=== PATIENT | male | born 1970 | race Two or more races ===

== ENCOUNTER 2020-02-17 12:01 | Inpatient (IN) | payer BC ==
[2020-02-17 12:30] VITALS: BMI 31.0
--- NOTE | 2020-02-17 12:51 | PDOC ---
History of Present Illness - General Chief Complaint: Shortness of Breath Stated Complaint: SHORTNESS OF BREATH Time Seen by Provider: 02/17/20 12:50 - History of Present Illness Initial Comments: 02/17/20 13:20 Mr. Evans is a 49 with PMH of HTN, psoriasis on humira presented to the ED for persistent SOB. He traveled to [facility] for 20 days. Initially, when he arrived, he had 2 days of fever, subsided quickly, muscle ache, . Then his family members who are doctor gave him 5 days of medication; he felt a bit better. Then february 11, he came back home, and kept having persistent SOB. His SOB is getting worsening; that's why he is here. He denies fever, N/V/D, chest pain, abdominal pain. He denies leg swelling, hx of blood clot. Patient had covid testing in [facility], and it was negative. He recently had covid testing, and it's still pending. Patient thinks this could be due to COVID. PMHX: as in HPI PSHX: none Meds: none Allergies: none Tob:none Etoh: occationally. Rec drugs: none PCP: have one, but he left practice. He needs to change to new PCP. Small Piece Cutter: yue DAVIS GENERAL/CONSTITUTIONAL: No fever or chills. No weakness. HEAD, EYES, EARS, NOSE AND THROAT: No change in vision. No ear pain or discharge. No sore throat. CARDIOVASCULAR: No chest pain , + shortness of breath RESPIRATORY: No cough, wheezing, or hemoptysis. GASTROINTESTINAL: No nausea, vomiting, diarrhea or constipation. GENITOURINARY: No dysuria, frequency, or change in urination. MUSCULOSKELETAL: No joint or muscle swelling or pain. No neck or back pain. SKIN: No rash NEUROLOGIC: No headache, vertigo, loss of consciousness, or change in strength/sensation. ENDOCRINE: No increased thirst. No abnormal weight change HEMATOLOGIC/LYMPHATIC: No anemia, easy bleeding, or history of blood clots. ALLERGIC/IMMUNOLOGIC: No hives or skin allergy. PE GENERAL: Awake, alert, and fully oriented, in no acute distress, in 2 L NC oxygen. HEAD: No signs of trauma, normocephalic, atraumatic EYES: PERRLA, EOMI, sclera anicteric, conjunctiva clear ENT: Auricles normal inspection, hearing grossly normal, nares patent, oropharynx clear without exudates. Moist mucosa NECK: Normal ROM, supple, no lymphadenopathy, JVD, or masses LUNGS: No distress, speaks full sentences, clear to auscultation bilaterally; however, crackles on the right bases. no intercostal retraction. HEART: Regular rate and rhythm, normal S1 and S2, no murmurs, rubs or gallops, peripheral pulses normal and equal bilaterally. ABDOMEN: Soft, nontender, normoactive bowel sounds. No guarding, no rebound. No masses EXTREMITIES : Normal inspection, Normal range of motion, no edema. No clubbing or cyanosis. NEUROLOGICAL: Cranial nerves II through XII grossly intact. Normal speech, normal gait, no focal sensorimotor deficits SKIN: Warm, Dry, normal turgor, no rashes or lesions noted Past History - Medical History Allergies/Adverse Reactions: Allergies Allergy/AdvReac Type Severity Reaction Status Date / Time No Known Allergies Allergy Verified 02/17/20 12:30 Home Medications: Ambulatory Orders Amlodipine Besylate [Norvasc -] 10 mg PO DAILY 02/17/20 Lisinopril/Hydrochlorothiazide [Lisinopril-Hctz 20-25 mg Tab] 1 each PO DAILY 02/17/20 Red Yeast Rice 600 mg PO DAILY 02/17/20 HTN: Yes - Psycho-Social/Smoking History Smoking Status: No Smoking History: Never smoked Number of Cigarettes Smoked Daily: 0 Information on smoking cessation initiated: No - Substance Abuse Hx (Audit-C & DAST Scrn) How often the patient has a drink containing alcohol: Monthly or less Score: In Men: 4 or > Positive; In Women: 3 or > Positive: 1 Screen Result (Pos requires Nsg. Audit-10AR): Negative *Physical Exam - Vital Signs Last Vital Signs Temp Pulse Resp BP Pulse Ox 98.9 F 116 H 20 145/104 H 92 L 02/17/20 12:22 02/17/20 12:22 02/17/20 12:22 02/17/20 12:22 02/17/20 12:22 ED Treatment Course - LABORATORY CBC & Chemistry Diagram: 02/17/20 12:45 02/17/20 13:21 Medical Decision Making - Medical Decision Making 02/17/20 13:31 49 M with hx of HTN, psoriasis presented to the ED for 5 days of persistent SOB. ddx: pneumonia, COVID, CHF, PE. Plan: Lab: CBC, CMP , BNP Imaging: chest xray which reveals increased central marking with some atelectasis at the base, need CT scan. Personal reading: showed no infiltrates. CT chest noncontrast. 02/17/20 14:01 EKG: sinus rhtym, vent rate 100, no ST changes suggesting Ischemic, no previous EKG to compare to . 02/17/20 14:01 repeated VItal sign: HTN 135/86, HR 106, Spo2 91% on RA, 98.2 tempt. Will keep him on oxygen 2L NC. CT chest non-contrast revealed ground glass sign consistently with COVID, given its nature, and his recent travel history, will plan to do CTA chest to rule out PE . Lab came back, showed elevated transaminase level, no elevated WBC. BUN/Cr is normal. proceed to do CTA to rule out PE. 02/17/20 14:52 Decision to admit was made, waiting to [facility] from formal reading of chest CT. 02/17/20 17:28 Patient will be admitted under dr. somers for hypoxia and covid. Lab ordered for CRP, LDA, Feritin , ddimer. per IM attending. Discharge - Discharge Information Problems reviewed: Yes Clinical Impression/Diagnosis: Hypoxia, COVID-19 Condition: Good - Admission Yes - Follow up/Referral Referrals: Joseph Gautam MD [Primary Care Provider] - - Patient Discharge Instructions - Post Discharge Activity
[2020-02-17] MEDS ORDERED: SODIUM CHLORIDE 0.9% 500 ML INFUS.BAG IV ONE (13:18)
[2020-02-17 14:19] LABS: BASO % 0.3 % (0-2.0); EOS % 0.6 % (0-4.5); HEMATOCRIT 44.9 % (35.4-49); HEMOGLOBIN 14.9 GM/dL (11.7-16.9); LYMPH % 31.4 % (8-40); MCH 28.1 pg (25.7-33.7); MCHC 33.2 g/dl (32.0-35.9); MEAN CELL VOLUME 84.8 fl (80-96); MEAN PLT VOLUME 9.7 fl (7.5-11.1); MONO % 10.5 % (3.8-10.2); NEUT % 57.2 % (42.8-82.8); PLATELET COUNT 320 K/MM3 (134-434); RBC 5.29 M/mm3 (4.00-5.60); RDW 13.5 % (11.9-15.9); WHITE BLOOD COUNT 7.1 K/mm3 (4.0-10.0)
[2020-02-17 14:28] LABS: ALBUMIN 3.4 g/dl (3.4-5.0); BILIRUBIN,TOTAL 0.9 mg/dL (0.2-1); BLOOD UREA NITROGEN 12.3 mg/dL (7-18); CALCIUM 9.5 mg/dL (8.5-10.1); POTASSIUM 3.8 mmol/L (3.5-5.1); TOT PROT 7.7 g/dl (6.4-8.2)
--- NOTE | 2020-02-17 15:57 | PDOC ---
Attending Attestation - Resident Resident Name: Mickey Lutz - ED Attending Attestation I have performed the following: I have examined & evaluated the patient, The case was reviewed & discussed with the resident, I agree w/resident's findings & plan, Exceptions are as noted - HPI HPI: 02/17/20 16:09 Agree with resident HPI - Physicial Exam PE: 02/17/20 16:10 GENERAL: Awake, alert, and fully oriented, in no acute distress EYES: PERRLA, EOMI, sclera anicteric, conjunctiva clear ENT: Nares patent, oropharynx clear without exudates. Moist mucosa NECK: Normal ROM, supple, no lymphadenopathy, JVD, or masses LUNGS: Fair air movement, diffuse b/l crackles R>L, no resp distress HEART: Regular rate and rhythm, normal S1 and S2, no murmurs, rubs or gallops ABDOMEN: Soft, nontender, normoactive bowel sounds. No guarding, no rebound. No masses EXTREMITIES: Normal range of motion, no edema. No clubbing or cyanosis. No cords, erythema, or tenderness NEUROLOGICAL: Normal speech, cranial nerves intact, equal strength and sensation b/l SKIN: Warm, Dry, normal turgor, no rashes or lesions noted. - Medical Decision Making 02/17/20 16:13 49yo M, immunecomprimised (on monoclonal ab) returns from (high COVID prevalence) with SOB, myalgias, fevers Pt hypoxic to 90% on RA at rest. Improves with NC to 96% Concern for COVID PNA vs bacterial PNA vs viral syndrome. PE also a consideration given recent travel Labs, CT, consider CTA, empiric abx antibiotics Anticipate admission Discharge - Discharge Information Problems reviewed: Yes Clinical Impression/Diagnosis: Hypoxia, COVID-19 Condition: Stable Disposition: HOME - Follow up/Referral - Patient Discharge Instructions - Post Discharge Activity
[2020-02-17] MEDS ORDERED: DEXAMETHASONE SOD PHOSPHATE 10 MG/1 ML VIAL IM ONE (16:17)
[2020-02-17] MEDS ORDERED: DEXAMETHASONE SOD PHOSPHATE 10 MG/1 ML VIAL ONE (17:36)
[2020-02-17] MEDS ORDERED: ALBUTEROL SO4 HFA INHALER IH PRN (18:29)
--- NOTE | 2020-02-17 18:33 | HP ---
CHIEF COMPLAINT: shortness of breath PCP: Dr. Joseph Gautam HISTORY OF PRESENT ILLNESS: Patient is a 49 year old male with past medical history of HTN, HLD and Psoriasis (on Humira twice monthly with Dr. Ochoa), presented to the ED due to cough and shortness of breath for about 3 weeks. Patient reported he went to [place] in on January 23 to fix his father's house. Three days after, he started feeling weak, with fevers, muscle aches and nonproductive cough. He went to a physician while there, and he reportedly was prescribed a medication that he took for 5 days. He reported he was also tested for COVID, but is unsure of the results. No encounter with any other person who is ill. Patient continued to have intermittent symptoms of cough, fevers, malaise and shortness of breath. Since he arrived in the [place] about a week ago, patient isolated himself. And in the last few days, patient has not had any fevers, but had persistent cough and worsening shortness of breath especially with exertion that prompted patient to come to the ED. He denies any headache, dizziness, chest pain, palpitations, abd ominal pain, diarrhea, constipation, urinary symptoms. ER course was notable for: (1)AST/ALT/ALP 67/123/120 (2)Chest CTA - no definite CT evidence of pulmonary embolism. Bilateral upper and lower lung kc subpleural groundglass infiltrates suggestive of COVID pneumonitis. Extensive atherosclerotic coronary artery calcifications. Several nonspecific mildly enlarged mediastinal LN which may be reactive. Diffuse hepatic steatosis. (3) Recent Travel:[facility] [place] PAST MEDICAL HISTORY: HTN HLD Psoriasis PAST SURGICAL HISTORY: None Social History: Smoking:denies Alcohol:denies Drugs: denies Allergies No Known Allergies Allergy (Verified 02/17/20 12:30) HOME MEDICATIONS: Home Medications Medication Instructions Recorded Amlodipine Besylate [Norvasc -] 10 mg PO DAILY 02/17/20 Lisinopril/Hydrochlorothiazide 1 each PO DAILY 02/17/20 [Lisinopril-Hctz 20-25 mg Tab] Red Yeast Rice 600 mg PO DAILY 02/17/20 REVIEW OF SYSTEMS CONSTITUTIONAL: Absent: fever, chills, diaphoresis, generalized weakness, malaise, loss of appetite, weight change HEENT: Absent: rhinorrhea, nasal congestion, throat pain, throat swelling, difficulty swallowing, mouth swelling, ear pain, eye pain, visual changes CARDIOVASCULAR: Absent: chest pain, syncope, palpitations, irregular heart rate, lightheadedness, peripheral edema RESPIRATORY: cough, shortness of breath Absent: dyspnea with exertion, orthopnea, wheezing, stridor, hemoptysis GASTROINTESTINAL: Absent: abdominal pain, abdominal distension, nausea, vomiting, diarrhea, constipation, melena, hematochezia GENITOURINARY: Absent: dysuria, frequency, urgency, hesitancy, hematuria, flank pain, genital pain MUSCULOSKELETAL: Absent: myalgia, arthralgia, joint swelling, back pain, neck pain SKIN: Absent: rash, itching, pallor HEMATOLOGIC/IMMUNOLOGIC: Absent: easy bleeding, easy bruising, lymphadenopathy, frequent infections ENDOCRINE: Absent: unexplained weight gain, unexplained weight loss, heat intolerance, cold intolerance NEUROLOGIC: Absent: headache, focal weakness or paresthesias, dizziness, unsteady gait, seizure, mental status changes, bladder or bowel incontinence PSYCHIATRIC: Absent: anxiety, depression, suicidal or homicidal ideation, hallucinations. PHYSICAL EXAMINATION Vital Signs - 24 hr 02/17/20 02/17/20 02/17/20 12:22 13:00 13:52 Temperature 98.9 F 98.4 F Pulse Rate 116 H Pulse Rate [ 106 H Apical] Respiratory 20 18 Rate Blood Pressure 145/104 H Blood Pressure 135/89 [Right Arm] O2 Sat by Pulse 92 L 95 91 L Oximetry (%) GENERAL: Awake, alert, and fully oriented,on 2L NC HEAD: Normal with no signs of trauma. EYES: PERRLA, EOMI, sclera anicteric, conjunctiva clear. EARS, NOSE, THROAT: Moist mucous membranes. NECK: Normal range of motion, supple LUNGS: Breath sounds equal, clear to auscultation bilaterally. HEART: Regular rate and rhythm, normal S1 and S2 ABDOMEN: Soft, nontender, not distended, normoactive bowel sounds LOWER EXTREMITIES: 2+ pulses, warm, well-perfused. No peripheral edema. NEUROLOGICAL: Cranial nerves II-XII intact. Normal speech. Normal gait. PSYCHIATRIC: Cooperative. Good eye contact. Appropriate mood and affect. SKIN: Warm, dry, normal turgor Laboratory Results - last 24 hr 02/17/20 02/17/20 02/17/20 12:45 13:21 13:21 WBC 7.1 RBC 5.29 Hgb 14.9 Hct 44.9 MCV 84.8 MCH 28.1 MCHC 33.2 RDW 13.5 Plt Count 320 MPV 9.7 Absolute Neuts (auto) 4.1 Neutrophils % 57.2 Lymphocytes % 31.4 Monocytes % 10.5 H Eosinophils % 0.6 Basophils % 0.3 Nucleated RBC % 0 Sodium 138 Potassium 3.8 Chloride 100 Carbon Dioxide 32 Anion Gap 6 L BUN 12.3 Creatinine 1.0 Est GFR (CKD-EPI)AfAm 102.69 Est GFR (CKD-EPI)NonAf 88.61 Random Glucose 153 H Calcium 9.5 Total Bilirubin 0.9 AST 67 H ALT 123 H Alkaline Phosphatase 120 H B-Natriuretic Peptide 28.8 Total Protein 7.7 Albumin 3.4 ASSESSMENT/PLAN: Patient is a 49 year old male with past medical history of HTN, HLD and Psoriasis (on Humira twice monthly with Dr. Ochoa), presented to the ED due to cough and shortness of breath for about 3 weeks. #Acute Hypoxic Respiratory failure -likely 2/2 COVID pneumonitis -Chest CTA negative for PE -Will give Plaquenil 400mg bid x2, then 200mg bid x8 -covid pending -Vit C/D/zinc -sputum culture -urine legionella and pneumoniae -blood culture -IH bronchodilators -supplemental oxygen to keep SpO2>95% -D-dimer,ESR/CRP. Ferritin, LDH pending -ID (Dr. Montiel) consulted #Transaminitis -likely 2/2 AREVALO -CTA showing diffuse hepatic steatosis -will order hepatitis panel -will continue to monitor LFTs #HTN -Continue home Enalapril-HCTZ and Amlodipine #HLD -Continue home meds #Psoriasis -Follows up with Dr. Ochoa outpatient -Receives Humira twice every month #FEN -Not on any standing fluids -Electrolytes wnl, routine bmp monitoring -Sodium restricted diet #Prophylaxis -Lovenox 90mg sq bid #Disposition -full code -med surg Visit type - Emergency Visit Emergency Visit: Yes ED Registration Date: 02/17/20 Care time: The patient presented to the Emergency Department on the above date and was hospitalized for further evaluation of their emergent condition. - New Patient This patient is new to me today: Yes Date on this admission: 02/17/20 - Critical Care Critical Care patient: No ATTENDING PHYSICIAN STATEMENT I saw and evaluated the patient. I reviewed the resident's note and discussed the case with the resident. I agree with the resident's findings and plan as documented. SUBJECTIVE: OBJECTIVE: ASSESSMENT AND PLAN:
--- NOTE | 2020-02-17 18:36 | PN ---
Teaching Attending Note Name of Resident: Paula Mercedes ATTENDING PHYSICIAN STATEMENT I saw and evaluated the patient. I reviewed the resident's note and discussed the case with the resident. I agree with the resident's findings and plan as documented. SUBJECTIVE: 49 y/o M who presents with shortness of breath and cough. Patient states that he has had persistent symptoms for 3 weeks, while he was in [place]. Patient saw a provider in [place] who prescribed him a medication that the patient was unaware of the name. He states that he continues to have symptoms and as such decided to come to the hospital. PMH, PSH, Allergies, ROS, Social Hx as per resident note OBJECTIVE: Initial Vital Signs Temp Pulse Resp BP Pulse Ox 98.9 F 116 H 20 145/104 H 92 L 02/17/20 12:22 02/17/20 12:22 02/17/20 12:22 02/17/20 12:02/17/20 12:22 GENERAL: Awake, alert, and fully oriented,on 2L NC HEAD: Normal with no signs of trauma. EYES: PERRLA, EOMI, sclera anicteric, conjunctiva clear. EARS, NOSE, THROAT: Moist mucous membranes. NECK: Normal range of motion, supple LUNGS: Breath sounds equal, clear to auscultation bilaterally. HEART: Regular rate and rhythm, normal S1 and S2 ABDOMEN: Soft, nontender, not distended, normoactive bowel sounds LOWER EXTREMITIES: 2+ pulses, warm, well-perfused. No peripheral edema. NEUROLOGICAL: Cranial nerves II-XII intact. Normal speech. Normal gait. PSYCHIATRIC: Cooperative. Good eye contact. Appropriate mood and affect. SKIN: Warm, dry, normal turgor ASSESSMENT AND PLAN: This is a 49 y/o M with Hx of HTN, HLD, psoriasis who presents with shortness of breath and cough concerning for COVID infection Shortness of breath/Cough CT Chest suggestive of COVID infection Start Plaquinil at this time 400mg BID followed by 200mg BID await results of covid swab Can consider plasma administration In addition, can consider short course of steroids/Tocilizumab/remdesivir pending COVID results Defer further management to ID Restart Home medications Rest of plan as per resident note
[2020-02-17] MEDS ORDERED: ENOXAPARIN NA (PORCINE) 100 MG/1 ML DISP.SYRIN SQ SCH (22:00)
[2020-02-17] MEDS: ASCORBIC ACID 500 MG TABLET (FP) PO SCH (22:18)
[2020-02-17] MEDS: HYDROXYCHLOROQUINE SO4 200 MG TABLET (FP) PO SCH (22:19)
[2020-02-18 07:34] LABS: BASO % 0.3 % (0-2.0); HEMATOCRIT 41.7 % (35.4-49); HEMOGLOBIN 14.3 GM/dL (11.7-16.9); LYMPH % 16.5 % (8-40); MCH 28.8 pg (25.7-33.7); MCHC 34.4 g/dl (32.0-35.9); MEAN CELL VOLUME 83.8 fl (80-96); MEAN PLT VOLUME 9.5 fl (7.5-11.1); MONO % 7.1 % (3.8-10.2); NEUT % 76.1 % (42.8-82.8); PLATELET COUNT 328 K/MM3 (134-434); RBC 4.98 M/mm3 (4.00-5.60); RDW 13.1 % (11.9-15.9)
[2020-02-18 07:36] LABS: CHOLESTEROL 201 mg/dL (50-200); HDL CHOLESTEROL 34 mg/dL (40-60); LDL CHOLESTEROL (ONLY SJRH) 150 mg/dL (5-100); TRIGLYCERIDES 130 mg/dL (0-150)
[2020-02-18 07:40] LABS: BILIRUBIN,TOTAL 0.6 mg/dL (0.2-1); BLOOD UREA NITROGEN 14.7 mg/dL (7-18); CALCIUM 8.9 mg/dL (8.5-10.1); CREATININE 0.8 mg/dL (0.55-1.3); MAGNESIUM 2.1 mg/dL (1.8-2.4); PHOSPHOROUS 3.4 mg/dL (2.5-4.9); POTASSIUM 4.6 mmol/L (3.5-5.1); TOT PROT 7.3 g/dl (6.4-8.2)
[2020-02-18 08:25] LABS: ERYTHROCYTE SEDIMENTATION RATE 38 mm/hr (0-10)
--- NOTE | 2020-02-18 09:21 | EKG ---
Test Reason : Blood Pressure : / mmHG Vent. Rate : 100 BPM Atrial Rate : 100 BPM P-R Int : 138 ms QRS Dur : 080 ms QT Int : 346 ms P-R-T Axes : 043 042 027 degrees QTc Int : 446 ms NORMAL SINUS RHYTHM NONSPECIFIC T WAVE ABNORMALITY ABNORMAL ECG WHEN COMPARED WITH ECG OF 28-APR-2013 09:16, NO SIGNIFICANT CHANGE WAS FOUND Confirmed by MD PELAYO PENG ([id number]) on 02/18/2020 9:20:36 AM Referred By: Confirmed By:XIANG PELAYO MD
[2020-02-18] MEDS ORDERED: PATIENT'S OWN MEDICATION (NON-FORMULARY) (Lisinopril/Hydrochlorothiazide [Lisinopril-Hctz PO SCH (10:00)
[2020-02-18] MEDS ORDERED: ENOXAPARIN NA (PORCINE) 40 MG/0.4 ML DISP.SYRIN SQ SCH ×2 (10:00)
[2020-02-18] MEDS ORDERED: RED YEAST RICE 600 MG PO SCH (10:00)
[2020-02-18] MEDS: amLODIPine BESYLATE 10 MG TABLET (FP) PO SCH (10:40)
[2020-02-18] MEDS: ZINC SULFATE 220 MG CAPSULE (FP) PO SCH (10:40)
[2020-02-18] MEDS: CHOLECALCIFEROL (VIT D3) 1,000 UNIT (25 MCG) TABLET PO SCH (10:40)
[2020-02-18] MEDS: LISINOPRIL 20 MG TABLET (FP) PO SCH (10:40)
[2020-02-18] MEDS: HYDROCHLOROTHIAZIDE 25 MG TABLET (FP) PO SCH (10:40)
[2020-02-18] MEDS: ASCORBIC ACID 500 MG TABLET (FP) PO SCH ×2 (10:40→21:57)
[2020-02-18] MEDS: HYDROXYCHLOROQUINE SO4 200 MG TABLET (FP) PO SCH (10:41)
[2020-02-18] MEDS ORDERED: AZITHROMYCIN IVPB 500 MG/250 ML BAG IVPB ONE (11:55)
[2020-02-18] MEDS ORDERED: methylPREDNISolone NA SUCC 1000 MG/8 ML VIAL IVPB ONE (11:55)
[2020-02-18] MEDS ORDERED: methylPREDNISolone NA SUCC 40 MG/1 ML VIAL IVPUSH ONE (12:00)
[2020-02-18] MEDS ORDERED: cefTRIAXone SODIUM 1 GM VIAL ONE ×2 (12:08→12:26)
[2020-02-18] MEDS ORDERED: DEXTROSE 5%-WATER - 50 ML IVPB ONE (12:08)
--- NOTE | 2020-02-18 12:11 | CON.ID ---
Consult Consult Specialty:: infectious diseass Referred by:: hospitalist Reason for Consultation:: pneumonia,sob,r/o covid - History of Present Illness Chief Complaint: sob History of Present Illness: 49 year old male with past medical history of HTN, HLD and Psoriasis (on Humira twice monthly with Dr. Ochoa), presented to the ED due to cough and shortness of breath for about 3 weeks. Patient reported he went to [place] in on January 23 to fix his father's house. Three days after, he started feeling weak, with fevers, muscle aches and nonproductive cough. He went to a physician while there, and he reportedly was prescribed a medication that he took for 5 days. He reported he was also tested for COVID, but is unsure of the results. No encounter with any other person who is ill. Patient continued to have intermitte nt symptoms of cough, fevers, malaise and shortness of breath. Since he arrived in the [place] about a week ago, patient isolated himself. And in the last few days, patient has not had any fevers, but had persistent cough and worsening shortness of breath especially with exertion that prompted patient to come to the ED. He denies any headache, dizziness, chest pain, palpitations, abdominal pain, diarr hea, constipation, urinary symptoms. spoke with the patient on dental financial coordinator phone - History Source History Provided By: Patient Limitations to Obtaining History: Language Barrier - Past Medical History Cardio/Vascular: Yes: HTN - Past Surgical History Past Surgical History: Yes: None - Alcohol/Substance Use Hx Alcohol Use: Yes (socially) History of Substance Use: reports: None - Smoking History Smoking history: Never smoked Aproximately how many cigarettes per day: 0 - Social History Usual Living Arrangement: Other (with sibling) ADL: Independent Home Medications - Allergies Allergies/Adverse Reactions: Allergies Allergy/AdvReac Type Severity Reaction Status Date / Time No Known Allergies Allergy Verified 02/17/20 12:30 - Home Medications Home Medications: Ambulatory Orders Amlodipine Besylate [Norvasc -] 10 mg PO DAILY 02/17/20 Lisinopril/Hydrochlorothiazide [Lisinopril-Hctz 20-25 mg Tab] 1 each PO DAILY 02/17/20 Red Yeast Rice 600 mg PO DAILY 02/17/20 Review of Systems - Review of Systems Constitutional: reports: Fever, Weakness Eyes: reports: No Symptoms HENT: reports: No Symptoms Neck: reports: No Symptoms Cardiovascular: reports: No Symptoms Respiratory: reports: Cough, SOB, SOB on Exertion Gastrointestinal: reports: No Symptoms Genitourinary: reports: No Symptoms Musculoskeletal: reports: No Symptoms Integumentary: reports: No Symptoms Neurological: reports: No Symptoms Endocrine: reports: No Symptoms Hematology/Lymphatic: reports: No Symptoms Psychiatric: reports: No Symptoms Physical Exam Vital Signs: Vital Signs Temperature 98.1 F 02/18/20 09:40 Pulse Rate 98 H 02/18/20 09:40 Respiratory Rate 02/18/20 09:40 Blood Pressure 154/94 02/18/20 09:40 O2 Sat by Pulse Oximetry (%) 94 L 02/18/20 11:10 Constitutional: Yes: Calm, Mild Distress Eyes: Yes: Conjunctiva Clear HENT: Yes: Atraumatic, Normocephalic Neck: Yes: Supple, Trachea Midline Cardiovascular: Yes: Regular Rate and Rhythm Respiratory: Yes: Regular, CTA Bilaterally Gastrointestinal: Yes: Normal Bowel Sounds, Soft Musculoskeletal: Yes: WNL Extremities: Yes: WNL Neurological: Yes: Alert, Oriented Psychiatric: Yes: Alert, Oriented Labs: CBC, BMP 02/18/20 06:31 02/18/20 06:31 Imaging - Results Chest X-ray: Report Reviewed, Image Reviewed Cat Scan: Report Reviewed, Image Reviewed Assessment/Plan Problem List - Problems presumed coronavirus infection (2) Hypoxia Code(s): R09.02 - HYPOXEMIA (3) Psoriasis Code(s): L40.9 - PSORIASIS, UNSPECIFIED (4) HTN (hypertension) Code(s): I10 - ESSENTIAL (PRIMARY) HYPERTENSION (5) Coronary artery calcification seen on CAT scan Code(s): I25.10 - ATHSCL HEART DISEASE OF [place] CORONARY ARTERY W/O ANG PCTRS PLAN i am very worried patient has covid would suggest awaiting for the result continue abx for now stop it once the covid test comes resp support await for other results close watch rest as per the team follow inflammatory markers
[2020-02-18] MEDS: CEFTRIAXONE 1 GM in DEXTROSE 5%-WATER - 50 ML IVPB SCH (12:58)
--- NOTE | 2020-02-18 13:25 | EKG ---
Test Reason : Blood Pressure : / mmHG Vent. Rate : 086 BPM Atrial Rate : 086 BPM P-R Int : 138 ms QRS Dur : 084 ms QT Int : 370 ms P-R-T Axes : 051 032 -06 degrees QTc Int : 442 ms NORMAL SINUS RHYTHM NONSPECIFIC T WAVE ABNORMALITY ABNORMAL ECG WHEN COMPARED WITH ECG OF 17-FEB-2020 12:32, NO SIGNIFICANT CHANGE WAS FOUND Confirmed by MD GITA, XIANG ([id number]) on 02/18/2020 1:25:32 PM Referred By: Confirmed By:XIANG PELAYO MD
--- NOTE | 2020-02-18 13:46 | PN ---
Progress Note (short form) - Note Progress Note: PULMONARY CONSULTATION DICTATED 02/18/20 IMP HYPOXEMIA BILATERAL PNEUMONIA SUSPECTED COVID -19 PNEUMONIA HTN HLD PSORIASIS ON HUMIRA PLAN SUPPLEMENTAL O2 INHALED BRONCHODILATORS/STEROIDS STEROIDS LOVENOX MONITOR INFLAMMATORY MARKERS COVID PCR PENDING COVID ANTIBODIES CONSIDER CONVALESCENT PLASMA IF PCR + OR IF PT HAS ANTIBODIES DR SANCHEZ Problem List - Problems (1) Suspected 2019 novel coronavirus infection Code(s): Z20.828 - CONTACT W AND EXPOSURE TO OTH VIRAL COMMUNICABLE DISEASES (2) Hypoxia Code(s): R09.02 - HYPOXEMIA (3) Psoriasis Code(s): L40.9 - PSORIASIS, UNSPECIFIED (4) HTN (hypertension) Code(s): I10 - ESSENTIAL (PRIMARY) HYPERTENSION (5) Coronary artery calcification seen on CAT scan Code(s): I25.10 - ATHSCL HEART DISEASE OF [place] CORONARY ARTERY W/O ANG PCTRS
--- NOTE | 2020-02-18 15:29 | PN ---
Teaching Attending Note Name of Resident: Kuldeep Shrestha ATTENDING PHYSICIAN STATEMENT I saw and evaluated the patient. I reviewed the resident's note and discussed the case with the resident. I agree with the resident's findings and plan as documented. SUBJECTIVE: SOB on exertion. Cough, no fever/chills. No sputum. OBJECTIVE: Tmax 100.2. Hemodynamically stable. SpO2 90% RA, 95% on 2L via NC Last Vital Signs Temp Pulse Resp BP Pulse Ox 97.5 F L 83 18 145/99 95 02/18/20 13:20 02/18/20 13:20 02/18/20 13:20 02/18/20 13:20 02/18/20 13:20 HEENT - Atraumatic, Normocephalic. Heart - S1, S2, RRR Lungs - clear to auscultation Abdomen - soft, non-tender. Bowel Sounds normal. Extremities - no edema, no calf tenderness. Neuro - AAO x 3. Tone/Power normal. Laboratory Results - last 24 hr 02/17/20 02/17/20 02/18/20 17:20 17:20 06:31 WBC RBC Hgb Hct MCV MCH MCHC RDW Plt Count MPV Absolute Neuts (auto) Neutrophils % Lymphocytes % Monocytes % Eosinophils % Basophils % Nucleated RBC % ESR D-Dimer 1037 H Sodium 138 Potassium 4.6 Chloride 102 Carbon Dioxide 29 Anion Gap 7 L BUN 14.7 Creatinine 0.8 Est GFR (CKD-EPI)AfAm 122.43 Est GFR (CKD-EPI)NonAf 105.63 Random Glucose 214 H Calcium 8.9 Phosphorus 3.4 Magnesium 2.1 Ferritin 346.0 280.4 Total Bilirubin 0.6 AST 44 H ALT 105 H Alkaline Phosphatase 114 LD Total 335 H 284 H C-Reactive Protein 3.9 H 3.3 H Total Protein 7.3 Albumin 3.0 L Triglycerides Cholesterol Total LDL Cholesterol HDL Cholesterol TSH 0.14 L Free T4 1.14 SARS-CoV-2 Ab Interp 02/18/20 02/18/20 02/18/20 06:31 06:31 06:31 WBC 7.0 RBC 4.98 Hgb 14.3 Hct 41.7 MCV 83.8 MCH 28.8 MCHC 34.4 RDW 13.1 Plt Count 328 MPV 9.5 Absolute Neuts (auto) 5.3 Neutrophils % 76.1 D Lymphocytes % 16.5 D Monocytes % 7.1 Eosinophils % 0.0 D Basophils % 0.3 Nucleated RBC % 0 ESR 38 H D-Dimer 1547 H Sodium Potassium Chloride Carbon Dioxide Anion Gap BUN Creatinine Est GFR (CKD-EPI)AfAm Est GFR (CKD-EPI)NonAf Random Glucose Calcium Phosphorus Magnesium Ferritin Total Bilirubin AST ALT Alkaline Phosphatase LD Total C-Reactive Protein Total Protein Albumin Triglycerides 130 Cholesterol 201 H Total LDL Cholesterol 150 H HDL Cholesterol 34 L TSH Free T4 SARS-CoV-2 Ab Interp 02/18/20 06:31 WBC RBC Hgb Hct MCV MCH MCHC RDW Plt Count MPV Absolute Neuts (auto) Neutrophils % Lymphocytes % Monocytes % Eosinophils % Basophils % Nucleated RBC % ESR D-Dimer Sodium Potassium Chloride Carbon Dioxide Anion Gap BUN Creatinine Est GFR (CKD-EPI)AfAm Est GFR (CKD-EPI)NonAf Random Glucose Calcium Phosphorus Magnesium Ferritin Total Bilirubin AST ALT Alkaline Phosphatase LD Total C-Reactive Protein Total Protein Albumin Triglycerides Cholesterol Total LDL Cholesterol HDL Cholesterol TSH Free T4 SARS-CoV-2 Ab Interp Non-reactive Current Medications Generic Name Dose Route Start Last Admin Trade Name Freq PRN Reason Stop Dose Admin Albuterol Sulfate 1 puff 02/17/20 18:29 Ventolin Hfa Inhaler - IH Q4H PRN SHORT OF BREATH/WHEEZING Amlodipine Besylate 10 mg 02/18/20 10:00 02/18/20 10:40 Norvasc - PO 10 mg DAILY PAULO Administration Ascorbic Acid 500 mg 02/17/20 22:00 02/18/20 10:40 Vitamin C - PO 500 mg BID PAULO Administration Budesonide/Formoterol Fumarate 2 puff 02/18/20 22:00 Symbicort 160/4.5mcg - IH BID PAULO Cholecalciferol 1,000 unit 02/18/20 10:00 02/18/20 10:40 Vitamin D3 - PO 1,000 unit DAILY PAULO Administration Enoxaparin Sodium 100 mg 02/18/20 22:00 Lovenox - SQ BID PAULO Hydrochlorothiazide 25 mg 02/18/20 10:00 02/18/20 10:40 Hctz - PO 25 mg DAILY PAULO Administration Azithromycin 250 mg/ Dextrose 250 mls @ 250 mls/hr 02/19/20 10:00 IVPB DAILY PAULO Ceftriaxone Sodium 1 gm/ 50 mls @ 100 mls/hr 02/18/20 12:00 02/18/20 12:58 Dextrose IVPB 02/25/20 11:59 100 mls/hr DAILY PAULO Administration Lisinopril 20 mg 02/18/20 10:00 02/18/20 10:40 Prinivil PO 20 mg DAILY PAULO Administration Methylprednisolone Sodium Succinate 50 mg 02/19/20 10:00 Solu-Medrol - IVPUSH BID PAULO Zinc Sulfate 220 mg 02/18/20 10:00 02/18/20 10:40 Orazinc - PO 220 mg DAILY PAULO Administration Home Medications Medication Instructions Recorded Amlodipine Besylate [Norvasc -] 10 mg PO DAILY 02/17/20 Lisinopril/Hydrochlorothiazide 1 each PO DAILY 02/17/20 [Lisinopril-Hctz 20-25 mg Tab] Red Yeast Rice 600 mg PO DAILY 02/17/20 ASSESSMENT AND PLAN: 49 year old male with history of HTN, HLD and Psoriasis (on Humira twice monthly with Dr. Ochoa), presents with cough and SOB for 2-3 weeks, [place] Chest CTA - no definite CT evidence of pulmonary embolism. Bilateral upper and lower lung kc subpleural groundglass infiltrates suggestive of COVID pneumonitis. Extensive atherosclerotic coronary artery calcifications. Several nonspecific mildly enlarged mediastinal LN which may be reactive. Diffuse hepatic steatosis. 1. Acute Hypoxic respiratory failure secondary to likely COVID Pneumonitis vs CAP SpO2 90% RA DDIMER elevated CTA - groundglass opacities, no PE Vitamin C, D, and Zinc Started on Solumedrol and Lovenox SQ pending COVID PCR result Empirically treat for Pneumonia with Ceftriaxone/Doxy (QTc 440s) Supplemental O2. ID/Pulm following. Droplet/Airborne/Contact isolation 2. Elevated Transmainases ?sec to COVID. Hepatic steatosis on CT No evidence of acute biliary pathology - will monitor. Acute hepatitis panel pending. 3. HTN - Continue home SONIA-I-HCTZ and Amlodipine 4. Psoriasis - on Humira as out-patient. Follows with Dr. Ochoa. 5. Low TSH, normal free T4 - for repeat thyroid function check in 3-4 weeks 6. Mediastinal LNs - likely reactive, needs 3 month follow up. DVT Px - on Lovenox
--- NOTE | 2020-02-18 16:11 | CONS ---
PULMONARY CONSULTATION DATE OF CONSULTATION: 02/18/2020 REFERRING PHYSICIAN: Luis Zhang MD HISTORY OF PRESENT ILLNESS: Patient is a 49-year-old male, past medical history of hypertension, hyperlipidemia, psoriasis on Humira twice monthly, admitted to [facility] complaining of cough, shortness of breath for approximately 3 weeks. Patient recently went to [facility] on January 23 to fix his father's house. Three days after he arrived in [facility] he started feeling weak with fevers, muscle aches and nonproductive cough. He went to his physician at that time and was prescribed medication he took for 5 days. He also stated he was tested for COVID, but did obtain results. He continued to have symptoms of cough and fever, malaise and shortness of breath. He arrived back in the [facility] about a week ago and isolated himself. In the past few days he started having persistent cough and worsening shortness of breath increasing with exertion at which time he presented to the emergency room. In the ER he had a CTA of the chest performed which showed bilateral upper and lower lobe subpleural ground-glass infiltrates suspected for COVID pneumonitis. No evidence of pulmonary emboli was appreciated. He also underwent duplex of lower extremities which was within normal limits. Patient was started on steroids as well as anticoagulants. Patient is a nonsmoker. He denies any history of occupational exposure to chemicals or fumes. PAST MEDICAL HISTORY: Again includes psoriasis on Humira twice monthly, hypertension, hyperlipidemia. CURRENT MEDICATIONS: Include Solu-Medrol 50 b.i.d., prednisone, Zithromax, ceftriaxone, Lovenox, Norvasc, Orazinc, hydrochlorothiazide, vitamin C, vitamin D3. REVIEW OF SYSTEMS: Positive cough nonproductive. No chest pain. No palpitations. Denies any shortness of breath with exertion. Has had 1 episode of fever. PHYSICAL EXAMINATION: General: Patient is an obese male awake, alert, comfortable on nasal O2. Vital Signs: He is currently afebrile. Blood pressure 145/99, respiratory rate is 18. O2 saturation is 95% on 2 L nasal cannula. HEENT: Normocephalic, atraumatic. Neck: Supple. Heart: Regular, S1, S2. Chest: Few bibasilar crackles. Abdomen: Soft. Bowel sounds are positive. Extremities: No cyanosis or edema. LABORATORIES: WBC is 7, hemoglobin 14.3, hematocrit 41.7 and platelet count 328,000. D-Dimer is 1547. BUN is 14, creatinine 0.8. COVID-19 is pending. SARS antibodies are nonreactive. Chest CT as noted earlier. IMPRESSION: 1. Hypoxemia secondary to suspected COVID-19 pneumonitis. 2. Bilateral pneumonia. 3. Hypertension. 4. Hyperlipidemia. 5. Psoriasis on Humira. PLAN: Supplemental O2, inhaled bronchodilators as well as inhaled steroids, Medrol, Lovenox. Monitor inflammatory markers. COVID antibody is negative. Consider convalescent plasma transfusion if COVID PCR positive. YASEMIN SANCHEZ M.D. [facility]EN/[id number]
--- NOTE | 2020-02-18 18:46 | PN ---
Physical Exam: SUBJECTIVE: No overnight events. Patient seen and examined. Endorses SOB on exertion improved with O2. Endorses non-productive cough. OBJECTIVE: Vital Signs Period Temp Pulse Resp BP Sys/Elkins Pulse Ox Last 24 Hr 97.5 F-100.2 F 83-98 18-20 136-159/68-99 93-97 GENERAL: The patient is awake, alert, and fully oriented, in no acute distress. HEENT: Normal with no signs of trauma. No ptosis. MMM LUNGS: coarse Breath sounds b/l, no wheezes, no accessory muscle use. HEART: Regular rate and rhythm, S1, S2 without murmur, rub or gallop. ABDOMEN: Soft, nontender, nondistended, normoactive bowel sounds EXTREMITIES: 2+ pulses, warm, well-perfused, no edema. NEUROLOGICAL: Normal speech, gait not observed. PSYCH: Normal mood, normal affect. SKIN: Warm, dry, normal turgor, no rashes or lesions noted Laboratory Results - last 24 hr 02/17/20 02/18/20 02/18/20 17:20 06:31 06:31 WBC 7.0 RBC 4.98 Hgb 14.3 Hct 41.7 MCV 83.8 MCH 28.8 MCHC 34.4 RDW 13.1 Plt Count 328 MPV 9.5 Absolute Neuts (auto) 5.3 Neutrophils % 76.1 D Lymphocytes % 16.5 D Monocytes % 7.1 Eosinophils % 0.0 D Basophils % 0.3 Nucleated RBC % 0 ESR 38 H D-Dimer Sodium 138 Potassium 4.6 Chloride 102 Carbon Dioxide 29 Anion Gap 7 L BUN 14.7 Creatinine 0.8 Est GFR (CKD-EPI)AfAm 122.43 Est GFR (CKD-EPI)NonAf 105.63 Random Glucose 214 H Calcium 8.9 Phosphorus 3.4 Magnesium 2.1 Ferritin 346.0 280.4 Total Bilirubin 0.6 AST 44 H ALT 105 H Alkaline Phosphatase 114 LD Total 335 H 284 H C-Reactive Protein 3.9 H 3.3 H Total Protein 7.3 Albumin 3.0 L Triglycerides Cholesterol Total LDL Cholesterol HDL Cholesterol TSH 0.14 L Free T4 1.14 SARS-CoV-2 Ab Interp 02/18/20 02/18/20 02/18/20 06:31 06:31 06:31 WBC RBC Hgb Hct MCV MCH MCHC RDW Plt Count MPV Absolute Neuts (auto) Neutrophils % Lymphocytes % Monocytes % Eosinophils % Basophils % Nucleated RBC % ESR D-Dimer 1547 H Sodium Potassium Chloride Carbon Dioxide Anion Gap BUN Creatinine Est GFR (CKD-EPI)AfAm Est GFR (CKD-EPI)NonAf Random Glucose Calcium Phosphorus Magnesium Ferritin Total Bilirubin AST ALT Alkaline Phosphatase LD Total C-Reactive Protein Total Protein Albumin Triglycerides 130 Cholesterol 201 H Total LDL Cholesterol 150 H HDL Cholesterol 34 L TSH Free T4 SARS-CoV-2 Ab Interp Non-reactive Active Medications Generic Name Dose Route Start Last Admin Trade Name Freq PRN Reason Stop Dose Admin Albuterol Sulfate 1 puff 02/17/20 18:29 Ventolin Hfa Inhaler - IH Q4H PRN SHORT OF BREATH/WHEEZING Amlodipine Besylate 10 mg 02/18/20 10:00 02/18/20 10:40 Norvasc - PO 10 mg DAILY PAULO Administration Ascorbic Acid 500 mg 02/17/20 22:00 02/18/20 10:40 Vitamin C - PO 500 mg BID PAULO Administration Budesonide/Formoterol Fumarate 2 puff 02/18/20 22:00 Symbicort 160/4.5mcg - IH BID PAULO Cholecalciferol 1,000 unit 02/18/20 10:00 02/18/20 10:40 Vitamin D3 - PO 1,000 unit DAILY PAULO Administration Enoxaparin Sodium 100 mg 02/18/20 22:00 Lovenox - SQ BID PAULO Hydrochlorothiazide 25 mg 02/18/20 10:00 02/18/20 10:40 Hctz - PO 25 mg DAILY PAULO Administration Ceftriaxone Sodium 1 gm/ 50 mls @ 100 mls/hr 02/18/20 12:00 02/18/20 12:58 Dextrose IVPB 02/25/20 11:59 100 mls/hr DAILY PAULO Administration Doxycycline Hyclate 100 mg/ 100 mls @ 100 mls/hr 02/18/20 22:00 Dextrose IVPB BID PAULO Lisinopril 20 mg 02/18/20 10:00 02/18/20 10:40 Prinivil PO 20 mg DAILY PAULO Administration Methylprednisolone Sodium Succinate 50 mg 02/19/20 10:00 Solu-Medrol - IVPUSH BID PAULO Zinc Sulfate 220 mg 02/18/20 10:00 02/18/20 10:40 Orazinc - PO 220 mg DAILY PAULO Administration ASSESSMENT/PLAN: 49 YO M PMH HLD, psoriasis (Humira twice a month w/ Dr. Ochoa) p/w cough & SOB X 3 wks after returning from [place]. # Acute Hypoxic Respiratory Failure 2/2 COVID VS PNA -D-Dimer (1037>1547), ESR (38), CRP (3.9>3.3) ELEVATED -LE doppler negative for DVT, CTA negative for PE -Chest CT: extensive b/l ground glass opacity consistent with COVID 19 pneumonitis. -s/p Solumedrol 100 mg IV today. Started on solumedrol 50 mg IV BID. -d/c plaquenil -c/w Lovenox sq 2/2 COVID hypercoaguability -QTC 442. Empiric tx for PNA: ceftriaxone 1 gm & doxycline 100 mg BID -O2 sat 91% on Rm air. maintain 2L O2 -ID following. Pulm c/s appreciated. c/w albuterol Inhaler. CONSIDER CONVALESCENT PLASMA if COVID PCR positive #Transaminitis -CT: diffuse fatty infiltration of liver -Cholestrol 201, total LDL cholestrol 150 -f/u hep serology # HTN -c/w home rx amlodipine 10 mg PO Daily, lisinopril-hydrochlorothiazide 20-25 mg tablet Daily #Psoriasis -f/u outpt w/ Dr. Ochoa #Enlarged Mediastinal Lymph nodes on CTA, reactive -on dc, 3 month f/u #Low TSH -TSH 0.14 (low), Free T4 1.14 (normal) -TFT oupt 3-4 wks #FEN no IVF monitor lytes sodium controlled diet #DISPO maintain med surg Visit type - Emergency Visit Emergency Visit: Yes ED Registration Date: 02/17/20 Care time: The patient presented to the Emergency Department on the above date and was hospitalized for further evaluation of their emergent condition. - New Patient This patient is new to me today: Yes Date on this admission: 02/18/20 - Critical Care Critical Care patient: No ATTENDING PHYSICIAN STATEMENT I saw and evaluated the patient. I reviewed the resident's note and discussed the case with the resident. I agree with the resident's findings and plan as documented. SUBJECTIVE: OBJECTIVE: ASSESSMENT AND PLAN:
[2020-02-18] MEDS ORDERED: DOXYCYCLINE HYCLATE 100 MG VIAL ONE (21:39)
[2020-02-18] MEDS ORDERED: DEXTROSE 5%-WATER 100 ML IVPB ONE (21:39)
[2020-02-18] MEDS ORDERED: PT OWN MED DRAWER 7, Y5N ONE (21:40)
[2020-02-18] MEDS: ENOXAPARIN NA (PORCINE) 100 MG/1 ML DISP.SYRIN SQ SCH (21:57)
[2020-02-18] MEDS: DOXYCYCLINE INJECTION 100 MG in DEXTROSE 5%-WATER 100 ML IVPB SCH (21:57)
[2020-02-18] MEDS: BUDESONIDE/FORMETEROL FUMARATE 160/4.5 mcg INHALER IH SCH (21:58)
[2020-02-19] MEDS ORDERED: FAMOTIDINE 20 MG TABLET PO ONE (01:48)
[2020-02-19 06:55] LABS: MCH 28.1 pg (25.7-33.7); MCHC 33.3 g/dl (32.0-35.9); MEAN CELL VOLUME 84.5 fl (80-96); MEAN PLT VOLUME 9.5 fl (7.5-11.1); PLATELET COUNT 376 K/MM3 (134-434); RBC 4.97 M/mm3 (4.00-5.60); RDW 13.5 % (11.9-15.9); WHITE BLOOD COUNT 19.8 K/mm3 (4.0-10.0)
[2020-02-19 07:31] LABS: CALCIUM 9.3 mg/dL (8.5-10.1); CREATININE 0.9 mg/dL (0.55-1.3); MAGNESIUM 2.1 mg/dL (1.8-2.4); PHOSPHOROUS 4.7 mg/dL (2.5-4.9); POTASSIUM 4.1 mmol/L (3.5-5.1)
[2020-02-19 08:53] LABS: ALBUMIN 3.1 g/dl (3.4-5.0); BILIRUBIN,DIRECT 0.1 mg/dL (0.0-0.2); BILIRUBIN,TOTAL 0.4 mg/dL (0.2-1)
[2020-02-19] MEDS ORDERED: DEXTROSE 5%-WATER 100 ML IVPB ONE (09:05)
[2020-02-19] MEDS ORDERED: DOXYCYCLINE HYCLATE 100 MG VIAL ONE (09:05)
[2020-02-19] MEDS ORDERED: cefTRIAXone SODIUM 1 GM VIAL ONE (09:06)
[2020-02-19] MEDS ORDERED: DEXTROSE 5%-WATER - 50 ML IVPB ONE (09:06)
[2020-02-19] MEDS: CEFTRIAXONE 1 GM in DEXTROSE 5%-WATER - 50 ML IVPB SCH (09:18)
[2020-02-19] MEDS: methylPREDNISolone NA SUCC 125 MG/2 ML VIAL IVPUSH SCH ×2 (09:18→22:03)
[2020-02-19] MEDS: ENOXAPARIN NA (PORCINE) 100 MG/1 ML DISP.SYRIN SQ SCH (09:18)
[2020-02-19] MEDS: HYDROCHLOROTHIAZIDE 25 MG TABLET (FP) PO SCH (09:19)
[2020-02-19] MEDS: CHOLECALCIFEROL (VIT D3) 1,000 UNIT (25 MCG) TABLET PO SCH (09:19)
[2020-02-19] MEDS: ZINC SULFATE 220 MG CAPSULE (FP) PO SCH (09:19)
[2020-02-19] MEDS: amLODIPine BESYLATE 10 MG TABLET (FP) PO SCH (09:19)
[2020-02-19] MEDS: LISINOPRIL 20 MG TABLET (FP) PO SCH (09:19)
[2020-02-19] MEDS: ASCORBIC ACID 500 MG TABLET (FP) PO SCH ×2 (09:19→22:02)
[2020-02-19] MEDS: BUDESONIDE/FORMETEROL FUMARATE 160/4.5 mcg INHALER IH SCH ×2 (09:19→22:03)
[2020-02-19] MEDS ORDERED: AZITHROMYCIN IVPB 250 MG in DEXTROSE 5%-WATER - 250 ML IVPB SCH (10:00)
--- NOTE | 2020-02-19 10:36 | PN ---
Progress Note, Physician History of Present Illness: PULMONARY ALERT,COMFORTABLE ON NASAL O2 O2 SAT 97%,+COUGH - Current Medication List Current Medications: Active Medications Albuterol Sulfate (Ventolin Hfa Inhaler -) 1 puff IH Q4H PRN PRN Reason: SHORT OF BREATH/WHEEZING Amlodipine Besylate (Norvasc -) 10 mg PO DAILY [facility] Last Admin: 02/19/20 09:19 Dose: 10 mg Documented by: Ascorbic Acid (Vitamin C -) 500 mg PO BID [facility] Last Admin: 02/19/20 09:19 Dose: 500 mg Documented by: Budesonide/Formoterol Fumarate (Symbicort 160/4.5mcg -) 2 puff IH BID [facility] Last Admin: 02/19/20 09:19 Dose: 2 puff Documented by: Cholecalciferol (Vitamin D3 -) 1,000 unit PO DAILY [facility] Last Admin: 02/19/20 09:19 Dose: 1,000 unit Documented by: Enoxaparin Sodium (Lovenox -) 100 mg SQ BID [facility] Last Admin: 02/19/20 09:18 Dose: 100 mg Documented by: Hydrochlorothiazide (Hctz -) 25 mg PO DAILY [facility] Last Admin: 02/19/20 09:19 Dose: 25 mg Documented by: Ceftriaxone Sodium 1 gm/ (Dextrose) 50 mls @ 100 mls/hr IVPB DAILY [facility] Stop: 02/25/20 11:59 Last Admin: 02/19/20 09:18 Dose: 100 mls/hr Documented by: Doxycycline Hyclate 100 mg/ (Dextrose) 100 mls @ 100 mls/hr IVPB BID [facility] Last Admin: 02/18/20 21:57 Dose: 100 mls/hr Documented by: Lisinopril (Prinivil) 20 mg PO DAILY [facility] Last Admin: 02/19/20 09:19 Dose: 20 mg Documented by: Methylprednisolone Sodium Succinate (Solu-Medrol -) 50 mg IVPUSH BID [facility] Last Admin: 02/19/20 09:18 Dose: 50 mg Documented by: Zinc Sulfate (Orazinc -) 220 mg PO DAILY [facility] Last Admin: 02/19/20 09:19 Dose: 220 mg Documented by: - Objective Vital Signs: Vital Signs Temperature 98.5 F 02/19/20 09:00 Pulse Rate 83 02/19/20 09:00 Respiratory Rate 19 02/19/20 09:00 Blood Pressure 161/94 02/19/20 09:00 O2 Sat by Pulse Oximetry (%) 97 02/19/20 09:00 Constitutional: Yes: Well Nourished, Calm Eyes: Yes: WNL HENT: Yes: WNL Neck: Yes: WNL Cardiovascular: Yes: Regular Rate and Rhythm, S1, S2 Respiratory: Yes: Rales (FEW CRACKLES) Gastrointestinal: Yes: Normal Bowel Sounds, Soft Extremities: Yes: WNL Edema: No Labs: CBC, BMP 02/19/20 06:21 02/19/20 06:21 INR, PTT Fibrinogen 414.0 mg/dL (238-498) 02/18/20 17:50 Problem List - Problems (1) Suspected 2019 novel coronavirus infection Code(s): Z20.828 - CONTACT W AND EXPOSURE TO OTH VIRAL COMMUNICABLE DISEASES (2) Hypoxia Code(s): R09.02 - HYPOXEMIA (3) Psoriasis Code(s): L40.9 - PSORIASIS, UNSPECIFIED (4) HTN (hypertension) Code(s): I10 - ESSENTIAL (PRIMARY) HYPERTENSION (5) Coronary artery calcification seen on CAT scan Code(s): I25.10 - ATHSCL HEART DISEASE OF [place] CORONARY ARTERY W/O ANG PCTRS Assessment/Plan IMP HYPOXEMIA BILATERAL PNEUMONIA SUSPECTED COVID -19 PNEUMONIA HTN HLD PSORIASIS ON HUMIRA PLAN SUPPLEMENTAL O2 INHALED BRONCHODILATORS/STEROIDS STEROIDS LOVENOX MONITOR INFLAMMATORY MARKERS COVID PCR + CONVALESCENT PLASMA TRANSFUSION DR SANCHEZ Problem List - Problems (1) Suspected 2019 novel coronavirus infection Code(s): Z20.828 - CONTACT W AND EXPOSURE TO OTH VIRAL COMMUNICABLE DISEASES (2) Hypoxia Code(s): R09.02 - HYPOXEMIA (3) Psoriasis Code(s): L40.9 - PSORIASIS, UNSPECIFIED (4) HTN (hypertension) Code(s): I10 - ESSENTIAL (PRIMARY) HYPERTENSION (5) Coronary artery calcification seen on CAT scan Code(s): I25.10 - ATHSCL HEART DISEASE OF [place] CORONARY ARTERY W/O ANG PCTRS
[2020-02-19] MEDS: DOXYCYCLINE INJECTION 100 MG in DEXTROSE 5%-WATER 100 ML IVPB SCH (10:42)
--- NOTE | 2020-02-19 11:07 | PN ---
Progress Note, Physician History of Present Illness: sob cough on 2 l nasal canula - Current Medication List Current Medications: Active Medications Albuterol Sulfate (Ventolin Hfa Inhaler -) 1 puff IH Q4H PRN PRN Reason: SHORT OF BREATH/WHEEZING Amlodipine Besylate (Norvasc -) 10 mg PO DAILY [facility] Last Admin: 02/19/20 09:19 Dose: 10 mg Documented by: Ascorbic Acid (Vitamin C -) 500 mg PO BID [facility] Last Admin: 02/19/20 09:19 Dose: 500 mg Documented by: Budesonide/Formoterol Fumarate (Symbicort 160/4.5mcg -) 2 puff IH BID [facility] Last Admin: 02/19/20 09:19 Dose: 2 puff Documented by: Cholecalciferol (Vitamin D3 -) 1,000 unit PO DAILY [facility] Last Admin: 02/19/20 09:19 Dose: 1,000 unit Documented by: Enoxaparin Sodium (Lovenox -) 100 mg SQ BID [facility] Last Admin: 02/19/20 09:18 Dose: 100 mg Documented by: Hydrochlorothiazide (Hctz -) 25 mg PO DAILY [facility] Last Admin: 02/19/20 09:19 Dose: 25 mg Documented by: Ceftriaxone Sodium 1 gm/ (Dextrose) 50 mls @ 100 mls/hr IVPB DAILY [facility] Stop: 02/25/20 11:59 Last Admin: 02/19/20 09:18 Dose: 100 mls/hr Documented by: Doxycycline Hyclate 100 mg/ (Dextrose) 100 mls @ 100 mls/hr IVPB BID [facility] Last Admin: 02/19/20 10:42 Dose: 100 mls/hr Documented by: Lisinopril (Prinivil) 20 mg PO DAILY [facility] Last Admin: 02/19/20 09:19 Dose: 20 mg Documented by: Methylprednisolone Sodium Succinate (Solu-Medrol -) 50 mg IVPUSH BID [facility] Last Admin: 02/19/20 09:18 Dose: 50 mg Documented by: Zinc Sulfate (Orazinc -) 220 mg PO DAILY [facility] Last Admin: 02/19/20 09:19 Dose: 220 mg Documented by: - Objective Vital Signs: Vital Signs Temperature 98.5 F 02/19/20 09:00 Pulse Rate 83 02/19/20 09:00 Respiratory Rate 19 07/29/20 09:00 Blood Pressure 161/94 07/29/20 09:00 O2 Sat by Pulse Oximetry (%) 97 02/19/20 09:00 Constitutional: Yes: Other (weKNESS) HENT: Yes: Atraumatic, Normocephalic Cardiovascular: Yes: Regular Rate and Rhythm Respiratory: Yes: Regular, CTA Bilaterally, On Nasal O2 Gastrointestinal: Yes: Normal Bowel Sounds, Soft Musculoskeletal: Yes: WNL Extremities: Yes: WNL Neurological: Yes: Alert, Oriented Psychiatric: Yes: Alert, Oriented Labs: CBC, BMP 02/19/20 06:21 02/19/20 06:21 INR, PTT Fibrinogen 414.0 mg/dL (238-498) 02/18/20 17:50 Assessment/Plan Problem List - Problems coronavirus infection (2) Hypoxia Code(s): R09.02 - HYPOXEMIA (3) Psoriasis Code(s): L40.9 - PSORIASIS, UNSPECIFIED (4) HTN (hypertension) Code(s): I10 - ESSENTIAL (PRIMARY) HYPERTENSION (5) Coronary artery calcification seen on CAT scan Code(s): I25.10 - ATHSCL HEART DISEASE OF [place] CORONARY ARTERY W/O ANG PCTRS PLAN resp support consider giving plasma if he worsens rest as per the team
[2020-02-19] MEDS: APIXABAN 5 MG TABLET PO SCH ×2 (11:43→22:02)
--- NOTE | 2020-02-19 14:03 | PN ---
Teaching Attending Note Name of Resident: Kuldeep Shrestha ATTENDING PHYSICIAN STATEMENT I saw and evaluated the patient. I reviewed the resident's note and discussed the case with the resident. I agree with the resident's findings and plan as documented. SUBJECTIVE: SOB on exertion improving. Cough, no fever/chills. No sputum. OBJECTIVE: Afebrile, Hemodynamically stable. SpO2 92% on 2L via NC Last Vital Signs Temp Pulse Resp BP Pulse Ox 98.5 F 117 H 19 161/94 92 L 02/19/20 09:00 02/19/20 13:37 02/19/20 09:00 02/19/20 09:00 02/19/20 13:37 Heart - S1, S2, RRR Lungs - clear to auscultation Abdomen - soft, non-tender. Bowel Sounds normal. Extremities - no edema, no calf tenderness. Neuro - AAO x 3. Tone/Power normal. Laboratory Results - last 24 hr 02/17/20 02/18/20 02/18/20 17:20 06:31 06:31 WBC RBC Hgb Hct MCV MCH MCHC RDW Plt Count MPV Fibrinogen D-Dimer Sodium 138 Potassium 4.6 Chloride 102 Carbon Dioxide 29 Anion Gap 7 L BUN 14.7 Creatinine 0.8 Est GFR (CKD-EPI)AfAm 122.43 Est GFR (CKD-EPI)NonAf 105.63 Random Glucose 214 H Calcium 8.9 Phosphorus 3.4 Magnesium 2.1 Ferritin 280.4 Total Bilirubin 0.6 Direct Bilirubin AST 44 H ALT 105 H Alkaline Phosphatase 114 LD Total 284 H C-Reactive Protein 3.3 H Total Protein 7.3 Albumin 3.0 L TSH 0.14 L Free T4 1.14 COVID-19 (MACY) Detected H Hep A IgM Ab Confirm Negative Hep Bs Antigen Negative Hep B Core IgM Ab Negative Hep C Ab Diagnostic <0.1 Hepatitis C Ab (EIA) <0.1 SARS-CoV-2 Ab Interp 02/18/20 02/18/20 02/19/20 06:31 17:50 06:21 WBC RBC Hgb Hct MCV MCH MCHC RDW Plt Count MPV Fibrinogen 414.0 D-Dimer 1013 H Sodium Potassium Chloride Carbon Dioxide Anion Gap BUN Creatinine Est GFR (CKD-EPI)AfAm Est GFR (CKD-EPI)NonAf Random Glucose Calcium Phosphorus Magnesium Ferritin Total Bilirubin Direct Bilirubin AST ALT Alkaline Phosphatase LD Total C-Reactive Protein Total Protein Albumin TSH Free T4 COVID-19 (MACY) Hep A IgM Ab Confirm Hep Bs Antigen Hep B Core IgM Ab Hep C Ab Diagnostic Hepatitis C Ab (EIA) SARS-CoV-2 Ab Interp Non-reactive 02/19/20 02/19/20 06:21 06:21 WBC 19.8 H RBC 4.97 Hgb 14.0 Hct 42.0 MCV 84.5 MCH 28.1 MCHC 33.3 RDW 13.5 Plt Count 376 MPV 9.5 Fibrinogen D-Dimer Sodium 138 Potassium 4.1 Chloride 100 Carbon Dioxide 28 Anion Gap 10 BUN 14.0 Creatinine 0.9 Est GFR (CKD-EPI)AfAm 116.65 Est GFR (CKD-EPI)NonAf 100.64 Random Glucose 264 H Calcium 9.3 Phosphorus 4.7 Magnesium 2.1 Ferritin 219.8 Total Bilirubin 0.4 Direct Bilirubin 0.1 AST 26 ALT 84 H Alkaline Phosphatase 113 LD Total 224 C-Reactive Protein 1.5 H Total Protein 7.0 Albumin 3.1 L TSH Free T4 COVID-19 (MACY) Hep A IgM Ab Confirm Hep Bs Antigen Hep B Core IgM Ab Hep C Ab Diagnostic Hepatitis C Ab (EIA) SARS-CoV-2 Ab Interp Current Medications Generic Name Dose Route Start Last Admin Trade Name Freq PRN Reason Stop Dose Admin Albuterol Sulfate 1 puff 02/17/20 18:29 Ventolin Hfa Inhaler - IH Q4H PRN SHORT OF BREATH/WHEEZING Amlodipine Besylate 10 mg 02/18/20 10:00 02/19/20 09:19 Norvasc - PO 10 mg DAILY PAULO Administration Apixaban 5 mg 02/19/20 11:15 02/19/20 11:43 Eliquis - PO 5 mg BID PAULO Administration Ascorbic Acid 500 mg 02/17/20 22:00 02/19/20 09:19 Vitamin C - PO 500 mg BID PAULO Administration Budesonide/Formoterol Fumarate 2 puff 02/18/20 22:00 02/19/20 09:19 Symbicort 160/4.5mcg - IH 2 puff BID PAULO Administration Cholecalciferol 1,000 unit 02/18/20 10:00 02/19/20 09:19 Vitamin D3 - PO 1,000 unit DAILY PAULO Administration Hydrochlorothiazide 25 mg 02/18/20 10:00 02/19/20 09:19 Hctz - PO 25 mg DAILY PAULO Administration Lisinopril 20 mg 02/18/20 10:00 02/19/20 09:19 Prinivil PO 20 mg DAILY PAULO Administration Methylprednisolone Sodium Succinate 50 mg 02/19/20 10:00 02/19/20 09:18 Solu-Medrol - IVPUSH 50 mg BID PAULO Administration Zinc Sulfate 220 mg 02/18/20 10:00 02/19/20 09:19 Orazinc - PO 220 mg DAILY PAULO Administration Home Medications Medication Instructions Recorded Amlodipine Besylate [Norvasc -] 10 mg PO DAILY 02/17/20 Lisinopril/Hydrochlorothiazide 1 each PO DAILY 02/17/20 [Lisinopril-Hctz 20-25 mg Tab] Red Yeast Rice 600 mg PO DAILY 02/17/20 ASSESSMENT AND PLAN: 49 year old male with history of HTN, HLD and Psoriasis (on Humira twice monthly with Dr. Ochoa), presents with cough and SOB for 2-3 weeks, [place] Chest CTA - no definite CT evidence of pulmonary embolism. Bilateral upper and lower lung kc subpleural groundglass infiltrates suggestive of COVID pneu monitis. Extensive atherosclerotic coronary artery calcifications. Several nonspecific mildly enlarged mediastinal LN which may be reactive. Diffuse hepatic steatosis. 1. Acute Hypoxic Respiratory Failure secondary to COVID Pneumonitis COVID PCR positive. SpO2 90% RA DDIMER elevated CTA - groundglass opacities, no PE Vitamin C, D, and Zinc Started on Solumedrol and Eliquis. Abx discontinued. Leukocytosis sec to Steroid. Up-titrate Supplemental O2 as needed. ID/Pulm following. For convalescent plasma - patient discussing with family prior to final consent. Droplet/Airborne/Contact isolation 2. Elevated Transmainases ?sec to COVID - improving Hepatic steatosis on CT No evidence of acute biliary pathology - will monitor. Acute hepatitis panel pending. 3. HTN - Continue home SONIA-I-HCTZ and Amlodipine 4. Psoriasis - on Humira as out-patient. Follows with Dr. Ochoa. 5. Low TSH, normal free T4 - for repeat thyroid function check in 3-4 weeks 6. Mediastinal LNs - likely reactive, needs [address] DVT Px - on Eliquis
--- NOTE | 2020-02-19 18:31 | PN ---
Physical Exam: SUBJECTIVE: No overnight events. Patient seen and examined. Endorses SOB improved. Endorses non-productive cough improved. OBJECTIVE: Vital Signs Period Temp Pulse Resp BP Sys/Elkins Pulse Ox Last 24 Hr 98.1 F-98.8 F 83-117 18-20 137-161/88-95 92-97 GENERAL: The patient is awake, alert, and fully oriented, in no acute distress. HEENT: Normal with no signs of trauma. No ptosis. MMM LUNGS: mild coarse Breath sounds b/l at bases, no wheezes, no accessory muscle use. HEART: Regular rate and rhythm, S1, S2 without murmur, rub or gallop. ABDOMEN: Soft, nontender, nondistended, normoactive bowel sounds EXTREMITIES: 2+ pulses, warm, well-perfused, no edema. NEUROLOGICAL: Normal speech, gait not observed. PSYCH: Normal mood, normal affect. SKIN: Warm, dry, normal turgor, no rashes or lesions noted Laboratory Results - last 24 hr 02/17/20 02/18/20 02/18/20 17:20 06:31 17:50 WBC RBC Hgb Hct MCV MCH MCHC RDW Plt Count MPV Fibrinogen 414.0 D-Dimer Sodium Potassium Chloride Carbon Dioxide Anion Gap BUN Creatinine Est GFR (CKD-EPI)AfAm Est GFR (CKD-EPI)NonAf Random Glucose Calcium Phosphorus Magnesium Ferritin Total Bilirubin Direct Bilirubin AST ALT Alkaline Phosphatase LD Total C-Reactive Protein Total Protein Albumin COVID-19 (MACY) Detected H Hep A IgM Ab Confirm Negative Hep Bs Antigen Negative Hep B Core IgM Ab Negative Hep C Ab Diagnostic <0.1 Hepatitis C Ab (EIA) <0.1 02/19/20 02/19/20 02/19/20 06:21 06:21 06:21 WBC 19.8 H RBC 4.97 Hgb 14.0 Hct 42.0 MCV 84.5 MCH 28.1 MCHC 33.3 RDW 13.5 Plt Count 376 MPV 9.5 Fibrinogen D-Dimer 1013 H Sodium 138 Potassium 4.1 Chloride 100 Carbon Dioxide 28 Anion Gap 10 BUN 14.0 Creatinine 0.9 Est GFR (CKD-EPI)AfAm 116.65 Est GFR (CKD-EPI)NonAf 100.64 Random Glucose 264 H Calcium 9.3 Phosphorus 4.7 Magnesium 2.1 Ferritin 219.8 Total Bilirubin 0.4 Direct Bilirubin 0.1 AST 26 ALT 84 H Alkaline Phosphatase 113 LD Total 224 C-Reactive Protein 1.5 H Total Protein 7.0 Albumin 3.1 L COVID-19 (MACY) Hep A IgM Ab Confirm Hep Bs Antigen Hep B Core IgM Ab Hep C Ab Diagnostic Hepatitis C Ab (EIA) Active Medications Generic Name Dose Route Start Last Admin Trade Name Freq PRN Reason Stop Dose Admin Albuterol Sulfate 1 puff 02/17/20 18:29 Ventolin Hfa Inhaler - IH Q4H PRN SHORT OF BREATH/WHEEZING Amlodipine Besylate 10 mg 02/18/20 10:00 02/19/20 09:19 Norvasc - PO 10 mg DAILY PAULO Administration Apixaban 5 mg 02/19/20 11:15 02/19/20 11:43 Eliquis - PO 5 mg BID PAULO Administration Ascorbic Acid 500 mg 02/17/20 22:00 02/19/20 09:19 Vitamin C - PO 500 mg BID PAULO Administration Budesonide/Formoterol Fumarate 2 puff 02/18/20 22:00 02/19/20 09:19 Symbicort 160/4.5mcg - IH 2 puff BID PAULO Administration Cholecalciferol 1,000 unit 02/18/20 10:00 02/19/20 09:19 Vitamin D3 - PO 1,000 unit DAILY PAULO Administration Hydrochlorothiazide 25 mg 02/18/20 10:00 02/19/20 09:19 Hctz - PO 25 mg DAILY PAULO Administration Lisinopril 20 mg 02/18/20 10:00 02/19/20 09:19 Prinivil PO 20 mg DAILY PAULO Administration Methylprednisolone Sodium Succinate 50 mg 02/19/20 10:00 02/19/20 09:18 Solu-Medrol - IVPUSH 50 mg BID PAULO Administration Zinc Sulfate 220 mg 02/18/20 10:00 02/19/20 09:19 Orazinc - PO 220 mg DAILY PAULO Administration ASSESSMENT/PLAN: 49 YO M PMH HLD, psoriasis (Humira twice a month w/ Dr. Ochoa) p/w cough & SOB X 3 wks after returning from [place], [place] # Acute Hypoxic Respiratory Failure 2/2 COVID -D-Dimer (1037>1547>1013), ESR (38), CRP (3.9>3.3) ELEVATED -LE doppler negative for DVT, CTA negative for PE -Chest CT: extensive b/l ground glass opacity consistent with COVID 19 pneumonitis. -COVID 19 detected; DHEM-GfC-3gu nonreactive -c/w solumedrol 50 mg IV BID. c/w Vit C, D, and zinc -d/c Lovenox sq. Start Eliquis 5 mg PO BID 2/2 COVID hypercoaguability -s/p plaquenil. DC ceftriaxone&doxycycline - ID & pulm appreciated. c/w albuterol Inhaler. CONVALESCENT PLASMA was offered to patient, but patient decided against it. -pre&post: 93% without O2 at rest//92% without O2 during exercise. -as per nursing note, pt is doing well with incentive spirometry #Transaminitis -CT: diffuse fatty infiltration of liver -Cholestrol 201, total LDL cholestrol 150 -hep serology negative # HTN -c/w home rx amlodipine 10 mg PO Daily, lisinopril-hydrochlorothiazide 20-25 mg tablet Daily #Psoriasis -f/u outpt w/ Dr. Ochoa #Enlarged Mediastinal Lymph nodes on CTA, reactive -on dc, 3 month f/u #Low TSH -TSH 0.14 (low), Free T4 1.14 (normal) -TFT oupt 3-4 wks #FEN no IVF monitor lytes sodium controlled diet #DISPO maintain med surg Visit type - Emergency Visit Emergency Visit: Yes ED Registration Date: 02/17/20 Care time: The patient presented to the Emergency Department on the above date and was hospitalized for further evaluation of their emergent condition. - New Patient This patient is new to me today: No - Critical Care Critical Care patient: No ATTENDING PHYSICIAN STATEMENT I saw and evaluated the patient. I reviewed the resident's note and discussed the case with the resident. I agree with the resident's findings and plan as documented. SUBJECTIVE: OBJECTIVE: ASSESSMENT AND PLAN:
[2020-02-20 08:15] LABS: BASO % 0.7 % (0-2.0); HEMATOCRIT 42.2 % (35.4-49); HEMOGLOBIN 14.1 GM/dL (11.7-16.9); LYMPH % 8.8 % (8-40); MCH 28.1 pg (25.7-33.7); MCHC 33.4 g/dl (32.0-35.9); MEAN CELL VOLUME 84.1 fl (80-96); MEAN PLT VOLUME 9.7 fl (7.5-11.1); MONO % 4.8 % (3.8-10.2); NEUT % 85.7 % (42.8-82.8); PLATELET COUNT 432 K/MM3 (134-434); RBC 5.02 M/mm3 (4.00-5.60); RDW 12.9 % (11.9-15.9); WHITE BLOOD COUNT 23.3 K/mm3 (4.0-10.0)
[2020-02-20 08:26] LABS: ALBUMIN 3.2 g/dl (3.4-5.0); BLOOD UREA NITROGEN 17.4 mg/dL (7-18); CALCIUM 9.5 mg/dL (8.5-10.1); MAGNESIUM 2.2 mg/dL (1.8-2.4); PHOSPHOROUS 5.2 mg/dL (2.5-4.9); POTASSIUM 4.4 mmol/L (3.5-5.1)
[2020-02-20 08:27] LABS: BILIRUBIN,TOTAL 0.4 mg/dL (0.2-1); TOT PROT 7.2 g/dl (6.4-8.2)
[2020-02-20 09:28] LABS: ANISOCYTOSIS 1+; MACROCYTOSIS 0; PLATELET ESTIMATE NORMAL
[2020-02-20] MEDS: amLODIPine BESYLATE 10 MG TABLET (FP) PO SCH (10:38)
[2020-02-20] MEDS: HYDROCHLOROTHIAZIDE 25 MG TABLET (FP) PO SCH (10:38)
[2020-02-20] MEDS: LISINOPRIL 20 MG TABLET (FP) PO SCH (10:39)
[2020-02-20] MEDS: BUDESONIDE/FORMETEROL FUMARATE 160/4.5 mcg INHALER IH SCH (10:39)
[2020-02-20] MEDS: ZINC SULFATE 220 MG CAPSULE (FP) PO SCH (10:39)
[2020-02-20] MEDS: CHOLECALCIFEROL (VIT D3) 1,000 UNIT (25 MCG) TABLET PO SCH (10:39)
[2020-02-20] MEDS: methylPREDNISolone NA SUCC 125 MG/2 ML VIAL IVPUSH SCH (10:39)
[2020-02-20] MEDS: APIXABAN 5 MG TABLET PO SCH (10:39)
[2020-02-20] MEDS: ASCORBIC ACID 500 MG TABLET (FP) PO SCH (10:39)
--- NOTE | 2020-02-20 11:09 | PN ---
Progress Note, Physician History of Present Illness: stable no new issues breathing well on room air - Current Medication List Current Medications: Active Medications Albuterol Sulfate (Ventolin Hfa Inhaler -) 1 puff IH Q4H PRN PRN Reason: SHORT OF BREATH/WHEEZING Amlodipine Besylate (Norvasc -) 10 mg PO DAILY [facility] Last Admin: 02/20/20 10:38 Dose: 10 mg Documented by: Apixaban (Eliquis -) 5 mg PO BID [facility] Last Admin: 02/20/20 10:39 Dose: 5 mg Documented by: Ascorbic Acid (Vitamin C -) 500 mg PO BID [facility] Last Admin: 02/20/20 10:39 Dose: 500 mg Documented by: Budesonide/Formoterol Fumarate (Symbicort 160/4.5mcg -) 2 puff IH BID [facility] Last Admin: 02/20/20 10:39 Dose: 2 puff Documented by: Cholecalciferol (Vitamin D3 -) 1,000 unit PO DAILY [facility] Last Admin: 02/20/20 10:39 Dose: 1,000 unit Documented by: Hydrochlorothiazide (Hctz -) 25 mg PO DAILY [facility] Last Admin: 02/20/20 10:38 Dose: 25 mg Documented by: Lisinopril (Prinivil) 20 mg PO DAILY [facility] Last Admin: 02/20/20 10:39 Dose: 20 mg Documented by: Methylprednisolone Sodium Succinate (Solu-Medrol -) 50 mg IVPUSH BID [facility] Last Admin: 02/20/20 10:39 Dose: 50 mg Documented by: Zinc Sulfate (Orazinc -) 220 mg PO DAILY [facility] Last Admin: 02/20/20 10:39 Dose: 220 mg Documented by: - Objective Vital Signs: Vital Signs Temperature 98.8 F 02/20/20 10:35 Pulse Rate 113 H 02/20/20 10:35 Respiratory Rate 20 02/20/20 10:35 Blood Pressure 153/99 02/20/20 10:35 O2 Sat by Pulse Oximetry (%) 97 02/20/20 10:35 Constitutional: Yes: No Distress, Calm Cardiovascular: Yes: S1, S2 Respiratory: Yes: Regular, CTA Bilaterally Gastrointestinal: Yes: Normal Bowel Sounds, Soft Musculoskeletal: Yes: WNL Extremities: Yes: WNL Neurological: Yes: Alert, Oriented Psychiatric: Yes: Alert, Oriented Labs: CBC, BMP 02/20/20 06:50 02/20/20 06:50 INR, PTT Fibrinogen 414.0 mg/dL (238-498) 02/18/20 17:50 Assessment/Plan Problem List - Problems presumed coronavirus infection (2) Hypoxia Code(s): R09.02 - HYPOXEMIA (3) Psoriasis Code(s): L40.9 - PSORIASIS, UNSPECIFIED (4) HTN (hypertension) Code(s): I10 - ESSENTIAL (PRIMARY) HYPERTENSION (5) Coronary artery calcification seen on CAT scan Code(s): I25.10 - ATHSCL HEART DISEASE OF [place] CORONARY ARTERY W/O ANG PCTRS PLAN sop all abx continue current mgmt i have explained to the patient he needs to maintain distancing from his parents and as he lives with them to come back to the hospital if develops any resp issues
--- NOTE | 2020-02-20 12:02 | PN ---
Progress Note (short form) - Note Progress Note: PULMONARY States breathing is improving. No fevers. Persistent dry cough. Declined plasma transfusion. c/o reflux. Vital Signs Period Temp Pulse Resp BP Sys/Elkins Pulse Ox Last 24 Hr 98.2 F-99.7 F 93-129 18-20 142-153/88-105 92-97 Gen: NAD at rest Heart: RRR Lung: distant breath sounds Abd: soft, nontender Ext: no edema CBC, BMP 02/20/20 06:50 02/20/20 06:50 Active Medications Albuterol Sulfate (Ventolin Hfa Inhaler -) 1 puff IH Q4H PRN PRN Reason: SHORT OF BREATH/WHEEZING Amlodipine Besylate (Norvasc -) 10 mg PO DAILY [facility] Last Admin: 02/20/20 10:38 Dose: 10 mg Documented by: Apixaban (Eliquis -) 5 mg PO BID [facility] Last Admin: 02/20/20 10:39 Dose: 5 mg Documented by: Ascorbic Acid (Vitamin C -) 500 mg PO BID [facility] Last Admin: 02/20/20 10:39 Dose: 500 mg Documented by: Budesonide/Formoterol Fumarate (Symbicort 160/4.5mcg -) 2 puff IH BID [facility] Last Admin: 02/20/20 10:39 Dose: 2 puff Documented by: Cholecalciferol (Vitamin D3 -) 1,000 unit PO DAILY [facility] Last Admin: 02/20/20 10:39 Dose: 1,000 unit Documented by: Hydrochlorothiazide (Hctz -) 25 mg PO DAILY [facility] Last Admin: 02/20/20 10:38 Dose: 25 mg Documented by: Lisinopril (Prinivil) 20 mg PO DAILY [facility] Last Admin: 02/20/20 10:39 Dose: 20 mg Documented by: Methylprednisolone Sodium Succinate (Solu-Medrol -) 50 mg IVPUSH BID [facility] Last Admin: 02/20/20 10:39 Dose: 50 mg Documented by: Zinc Sulfate (Orazinc -) 220 mg PO DAILY [facility] Last Admin: 02/20/20 10:39 Dose: 220 mg Documented by: A/P Hypoxia COVID19 Pneumonia HTN Hyperlipidemia Psoriasis on DMARD - can change steroids to decadron 6mg daily - continue anticoagulation - inhaled bronchodilators/steroids - can discharge home with quarantine from pulmonary standpoint
[2020-02-20 13:21] VITALS: BP 151/92; PULSE 99; TEMP 98.3
--- NOTE | 2020-02-20 14:47 | PN ---
Teaching Attending Note Name of Resident: Kuldeep Shrestha ATTENDING PHYSICIAN STATEMENT I saw and evaluated the patient. I reviewed the resident's note and discussed the case with the resident. I agree with the resident's findings and plan as documented. SUBJECTIVE: SOB improved. No fever/chills. No sputum. OBJECTIVE: Afebrile, Hemodynamically stable. SpO2 97% on RA Last Vital Signs Temp Pulse Resp BP Pulse Ox 98.3 F 99 H 18 151/92 97 02/20/20 13:20 02/20/20 13:20 02/20/20 13:20 02/20/20 13:02/20/20 13:20 Heart - S1, S2, RRR Lungs - clear to auscultation Abdomen - soft, non-tender. Bowel Sounds normal. Extremities - no edema, no calf tenderness. Neuro - AAO x 3. Tone/Power normal. Laboratory Results - last 24 hr 02/19/20 02/20/20 02/20/20 19:40 06:50 06:50 WBC 23.3 H RBC 5.02 Hgb 14.1 Hct 42.2 MCV 84.1 MCH 28.1 MCHC 33.4 RDW 12.9 Plt Count 432 MPV 9.7 Absolute Neuts (auto) 20.0 H Neutrophils % 85.7 H Neutrophils % (Manual) 80.4 Band Neutrophils % 1.1 Lymphocytes % 8.8 D Lymphocytes % (Manual) 10.3 Monocytes % 4.8 Monocytes % (Manual) 4 Eosinophils % 0.0 Eosinophils % (Manual) 0.0 Basophils % 0.7 Basophils % (Manual) 0.0 Myelocytes % (Man) 0 Promyelocytes % (Man) 0 Blast Cells % (Manual) 0 Nucleated RBC % 1 H Metamyelocytes 0 Hypochromia 0 Platelet Estimate Normal Polychromasia 1+ Poikilocytosis 0 Anisocytosis 1+ Microcytosis 1+ Macrocytosis 0 Sodium 134 L Potassium 4.4 Chloride 98 Carbon Dioxide 28 Anion Gap 8 BUN 17.4 Creatinine 1.0 Est GFR (CKD-EPI)AfAm 102.69 Est GFR (CKD-EPI)NonAf 88.61 Random Glucose 298 H Calcium 9.5 Phosphorus 5.2 H Magnesium 2.2 Total Bilirubin 0.4 AST 25 ALT 80 H Alkaline Phosphatase 116 Total Protein 7.2 Albumin 3.2 L Blood Type O POSITIVE Antibody Screen Negative Current Medications Generic Name Dose Route Start Last Admin Trade Name Freq PRN Reason Stop Dose Admin Albuterol Sulfate 1 puff 02/17/20 18:29 Ventolin Hfa Inhaler - IH Q4H PRN SHORT OF BREATH/WHEEZING Amlodipine Besylate 10 mg 02/18/20 10:00 02/20/20 10:38 Norvasc - PO 10 mg DAILY PAULO Administration Apixaban 5 mg 02/19/20 11:15 02/20/20 10:39 Eliquis - PO 5 mg BID PAULO Administration Ascorbic Acid 500 mg 02/17/20 22:00 02/20/20 10:39 Vitamin C - PO 500 mg BID PAULO Administration Budesonide/Formoterol Fumarate 2 puff 02/18/20 22:00 02/20/20 10:39 Symbicort 160/4.5mcg - IH 2 puff BID PAULO Administration Cholecalciferol 1,000 unit 02/18/20 10:00 02/20/20 10:39 Vitamin D3 - PO 1,000 unit DAILY PAULO Administration Hydrochlorothiazide 25 mg 02/18/20 10:00 02/20/20 10:38 Hctz - PO 25 mg DAILY PAULO Administration Lisinopril 20 mg 02/18/20 10:00 02/20/20 10:39 Prinivil PO 20 mg DAILY PAULO Administration Methylprednisolone Sodium Succinate 50 mg 02/19/20 10:00 02/20/20 10:39 Solu-Medrol - IVPUSH 50 mg BID PAULO Administration Zinc Sulfate 220 mg 02/18/20 10:00 02/20/20 10:39 Orazinc - PO 220 mg DAILY PAULO Administration Home Medications Medication Instructions Recorded Amlodipine Besylate [Norvasc -] 10 mg PO DAILY 02/17/20 Lisinopril/Hydrochlorothiazide 1 each PO DAILY 02/17/20 [Lisinopril-Hctz 20-25 mg Tab] Red Yeast Rice 600 mg PO DAILY 02/17/20 Albuterol Sulfate Inhaler - 1 puff IH Q4H PRN 30 Days #1 02/20/20 [Ventolin HFA Inhaler -] inhaler Apixaban [Eliquis -] 5 mg PO BID #57 tablet 02/20/20 Ascorbic Acid [Vitamin C -] 500 mg PO BID #60 tablet 02/20/20 Budesonide/Formeterol Fumarate 2 puff IH BID 30 Days #1 inhaler 02/20/20 [SYMBICORT 160/4.5mcg -] Cholecalciferol (Vitamin D3) 1,000 unit PO DAILY #30 tab 02/20/20 [Vitamin D3 -] Dexamethasone [Decadron] 6 mg PO DAILY #12 tablet 02/20/20 Zinc Sulfate [Orazinc -] 220 mg PO DAILY #30 capsule 02/20/20 ASSESSMENT AND PLAN: 49 year old male with history of HTN, HLD and Psoriasis (on Humira twice monthly with Dr. Ochoa), presents with cough and SOB for 2-3 weeks, [place] Chest CTA - no definite CT evidence of pulmonary embolism. Bilateral upper and lower lung kc subpleural groundglass infiltrates suggestive of COVID pneumonitis. Extensive atherosclerotic coronary artery calcifications. Several nonspecific mildly enlarged mediastinal LN which may be reactive. Diffuse hepatic steatosis. 1. Acute Hypoxic Respiratory Failure secondary to COVID Pneumonitis - Hypoxia resolved COVID PCR positive. SpO2 initially 90% RA, now 97% on RA DDIMER elevated CTA - groundglass opacities, no PE Continue Vitamin C, D, and Zinc Started on Solumedrol and Eliquis. Abx discontinued. Leukocytosis sec to Steroid. Declined convalescent plasma Medically stable for discharge on Decadron for 14 days total and Eliquis for 30 days total Counselled regarding importance of isolation on returning home. 2. Elevated Transmainases sec to COVID - improving Hepatic steatosis on CT No evidence of acute biliary pathology Acute hepatitis panel negative. 3. HTN - Continue home SONIA-I-HCTZ and Amlodipine 4. Psoriasis - on Humira as out-patient. Follows with Dr. Ochoa. 5. Low TSH, normal free T4 - for repeat thyroid function check in 3-4 weeks 6. Mediastinal LNs - likely reactive, needs [address] 7. Hypercholesterolemia, LDL 150 - to follow with PCP for initiation of p harmacologic therapy. Medically stable and optimized for discharge.
--- NOTE | 2020-02-20 22:43 | DS ---
Physical Exam: SUBJECTIVE: No overnight events. Patient seen and examined. Endorses SOB improved. Endorses non-productive cough improved. OBJECTIVE: Vital Signs Period Temp Pulse Resp BP Sys/Elkins Pulse Ox Last 24 Hr 98.3 F-99.1 F 94-113 18-20 142-153/88-105 97-97 PHYSICAL EXAM GENERAL: The patient is awake, alert, and fully oriented, in no acute distress. HEENT: Normal with no signs of trauma. No ptosis. MMM LUNGS: mild coarse Breath sounds b/l at bases, no wheezes, no accessory muscle use. HEART: Regular rate and rhythm, S1, S2 without murmur, rub or gallop. ABDOMEN: Soft, nontender, nondistended, normoactive bowel sounds EXTREMITIES: 2+ pulses, warm, well-perfused, no edema. NEUROLOGICAL: Normal speech, gait not observed. PSYCH: Normal mood, normal affect. SKIN: Warm, dry, normal turgor, no rashes or lesions noted LABS Laboratory Results - last 24 hr 02/19/20 02/20/20 02/20/20 19:40 06:50 06:50 WBC 23.3 H RBC 5.02 Hgb 14.1 Hct 42.2 MCV 84.1 MCH 28.1 MCHC 33.4 RDW 12.9 Plt Count 432 MPV 9.7 Absolute Neuts (auto) 20.0 H Neutrophils % 85.7 H Neutrophils % (Manual) 80.4 Band Neutrophils % 1.1 Lymphocytes % 8.8 D Lymphocytes % (Manual) 10.3 Monocytes % 4.8 Monocytes % (Manual) 4 Eosinophils % 0.0 Eosinophils % (Manual) 0.0 Basophils % 0.7 Basophils % (Manual) 0.0 Myelocytes % (Man) 0 Promyelocytes % (Man) 0 Blast Cells % (Manual) 0 Nucleated RBC % 1 H Metamyelocytes 0 Hypochromia 0 Platelet Estimate Normal Polychromasia 1+ Poikilocytosis 0 Anisocytosis 1+ Microcytosis 1+ Macrocytosis 0 Sodium 134 L Potassium 4.4 Chloride 98 Carbon Dioxide 28 Anion Gap 8 BUN 17.4 Creatinine 1.0 Est GFR (CKD-EPI)AfAm 102.69 Est GFR (CKD-EPI)NonAf 88.61 Random Glucose 298 H Calcium 9.5 Phosphorus 5.2 H Magnesium 2.2 Total Bilirubin 0.4 AST 25 ALT 80 H Alkaline Phosphatase 116 Total Protein 7.2 Albumin 3.2 L Blood Type O POSITIVE Antibody Screen Negative HOSPITAL COURSE: 49 YO M PMH HLD, psoriasis (Humira twice a month w/ Dr. Ochoa) p/w cough & SOB X 3 wks after returning from [place] [address]. Pt was found to have elevated D- Dimer, ESR, & CRP. LE doppler negative for DVT, CTA negative for PE. Chest CT showed extensive b/l ground glass opacity consistent with COVID 19 pneumonitis. COVID 19 was detected; [id number] nonreactive. Pt was given solumedrol 50 mg IV BID, Vit C, D, zinc, and Lovenox. The lovenox was later changed to eliquis. CONVALESCENT PLASMA was offered to patient, but patient decided against it. A pre&post showed that the patient saturated at 93% without O2 at rest & 92% without O2 during exercise. CT showed diffuse fatty infiltration of liver. Cholestrol 201, total LDL cholestrol 150. Hep serology was negative. Pt was advised to make lifestyle modifications. CTA showed enlarged mediastinal lymph nodess and pt was referred to pulmonlogist for follow-up. TSH was found to be 0.14 (low), Free T4 1.14 (normal), so he was referred to an airline dispatcher for TFT follow-up. The pt's symptoms improved. Pt is stable for discharge. Date of Admission:02/17/20 Date of Discharge: 02/20/20 Minutes to complete discharge: 45 Discharge Summary Problems reviewed: Yes Reason For Visit: COVID19 SHORTNESS OF BREATH HYPOXIA Condition: Stable - Instructions Diet, Activity, Other Instructions: You came to the hospital for 3 weeks of cough and shortness of breath. Imaging of your lungs were suggestive of COVID 19 pneumonitis. You were positive for COVID 19, which was managed with steroids and given blood thinners to prevent clots. Imaging showed that you have a fatty liver. Your cholesterol is elevated. Please start lifestyle modifications, such as exercise and low fat/low cholesterol diet, to improve your health. CT imaging of your chest also showed enlarged lymph nodes. Please see a federal appellate clerk for follow-up and discuss the need for follow-up CT imaging of your chest in 3 months. You were also found to have low thyroid stimulating hormone (TSH) levels. Please follow-up with the airline dispatcher for a repeat Thyroid Stimulating Hormone measurement in 3-4 weeks Your symptoms improved. You are stable for discharge. MEDICATIONS Please start taking Decadron 6 mg once a day for 12 days. Please start taking Eliquis 5 mg twice a day for 28 days. Please start taking Vitamin D, Vitamin C, and Zinc. Please start taking Budesonide/Formoterol Fumarate[Symbicort 160/4.5mcg], 2 puffs inhaled, twice a day. Please start taking Albuterol Acid[Ventolin Hfa Inhaler] 2 puffs per 4hs as needed for shortness of breath. FOLLOW-UP Please follow-up with infectious disease physician, Dr. Montiel, regarding your COVID 19 pneumonitis. Please follow up with federal appellate clerk, Dr. Echavarria, for follow up of the enlarged lymph nodes on your Chest CT image. Please follow-up with airline dispatcher, Dr. Daly, to discuss your low Thyroid Stimulating Hormone level and discuss repeat in 3-4 weeks. Please follow-up with your primary care physician, Dr. Gautam, for general health maintenance and follow-up of your high cholesterol and extensive calcifications of the coronary arteries. For at least the next 14days, please maintain social distancing and take proper precautions to maintain distance from family members to prevent others from getting COVID 19. Please follow a low fat, low cholesterol diet. If you have any new, worsening, or concerning symptoms please return to the ED or call 911 Referrals: Jason Montiel MD [Staff Physician] - 2 Weeks (COVID 19 Pneumonitis. Given Solumedrol and lovenox inpatient. Patient decided against convalescent plasma. Discharged with decadron, vitamins, bronchodilators, eliquis. ) Brian Echavarria MD [Staff Physician] - 2 Weeks (COVID 19 Pneumonitis. Given Solumedrol and lovenox inpatient. Patient decided against convalescent plasma. Discharged with decadron and eliquis. Chest CT and Chest/thorax CTA showed enlarged mediastinal lymph nodes, which may be reactive nature. ) Jermaine Ochoa MD [Staff Physician] - 2 Weeks (follow up for Psoriasis) Curly Daly MD [Staff Physician] - 3 Weeks (Free T4 was normal (1.14), but TSH was 0.14. Discuss follow-up labowork in 3-4weeks ) Joseph Gautam MD [Primary Care Provider] - 2 Weeks Disposition: HOME - Home Medications Comprehensive Discharge Medication List: Ambulatory Orders Amlodipine Besylate [Norvasc -] 10 mg PO DAILY 02/17/20 Lisinopril/Hydrochlorothiazide [Lisinopril-Hctz 20-25 mg Tab] 1 each PO DAILY 02/17/20 Red Yeast Rice 600 mg PO DAILY 02/17/20 Albuterol Sulfate Inhaler - [Ventolin HFA Inhaler -] 1 puff IH Q4H PRN 30 Days #1 inhaler 02/20/20 Apixaban [Eliquis -] 5 mg PO BID #57 tablet 02/20/20 Ascorbic Acid [Vitamin C -] 500 mg PO BID #60 tablet 02/20/20 Budesonide/Formeterol Fumarate [SYMBICORT 160/4.5mcg -] 2 puff IH BID 30 Days #1 inhaler 02/20/20 Cholecalciferol (Vitamin D3) [Vitamin D3 -] 1,000 unit PO DAILY #30 tab 02/20/20 Dexamethasone [Decadron] 6 mg PO DAILY #12 tablet 02/20/20 Zinc Sulfate [Orazinc -] 220 mg PO DAILY #30 capsule 02/20/20 This patient is new to me today: No Emergency Visit: Yes ED Registration Date: 02/17/20 Care time: The patient presented to the Emergency Department on the above date and was hospitalized for further evaluation of their emergent condition. Critical Care patient: No - Discharge Referral Referred to [facility] No ATTENDING PHYSICIAN STATEMENT I saw and evaluated the patient. I reviewed the resident's note and discussed the case with the resident. I agree with the resident's findings and plan as documented. SUBJECTIVE: OBJECTIVE: ASSESSMENT AND PLAN:
== END 2020-02-20 18:13 | disposition home or self-care (01) | DRG 177 ==
LOC: JER 12:01 → JERBED 17:57 → J4S 21:44
PROVIDERS: ADMIT Internal Medicine
DX: U07.1 COVID-19 (principal); J96.01 Acute respiratory failure with hypoxia; J12.89 Other viral pneumonia; I10 Essential (primary) hypertension; L40.9 Psoriasis, unspecified; M79.10 Myalgia, unspecified site; R50.9 Fever, unspecified; E78.5 Hyperlipidemia, unspecified; K75.81 Nonalcoholic steatohepatitis (NASH); I25.10 Atherosclerotic heart disease of native coronary artery without angina pectoris; R59.0 Localized enlarged lymph nodes
CPT/HCPCS: 36415; 71045-TC-FY; 71250-TC; 71275-TC; 80048; 80053; 80061; 80074; 80076; 82728; 83615; 83721; 83735; 83880; 84100; 84439; 84443; 85025; 85027; 85379; 85384; 85651; 86140; 86769; 86803; 86850; 86900; 86901; 87040; 87899; 93005; 93010; 93970-TC; 94761; 99285-25; J1100; Q9967; U0003

== ENCOUNTER 2021-04-02 18:19 | Emergency (ER) | payer BC, OTHER ==
[2021-04-02 18:33] VITALS: BP 134/90; PULSE 80; TEMP 98.8; BMI 30.1
== END 2021-04-02 20:45 | disposition home or self-care (01) ==
LOC: JERFT 18:19
DX: G44.89 Other headache syndrome (principal)
CPT/HCPCS: 70450-TC; 99284-25